=== PATIENT | female | born 1980 | race African-American/Black ===

== ENCOUNTER 2017-01-24 13:15 | Emergency (ER) | payer OTHER ==
--- NOTE | ~2017-01-24 | CR72 ---
[facility] A Service of [facility] RADIOLOGY TEXT RESULTS PATIENT: PEDRO GOODMAN LOCATION: [place] : [birth year] UNIT #: [id number] AGE: [address]: Chuy Hawkins MD SEX: F ORDER DR: [id number] [facility] [address] [place], [place] [address] [id number] MR#: [id number] Acc #: [id number] NAME: PEDRO GOODMAN : 1980 SEX: F STUDY DATE/TIME: 01/24/2017 UNIT: [place] ROOM: STUDY DESCRIPTION: CR Chest Single View Portable Attending Physician: Chuy Hawkins M.D. Ordering Physician: Chuy Hawkins M.D. [facility] RE[facility] This report is preliminary unless electronic signature is present EXAM Chest portable 01/24/2017 1340 hours HISTORY 36-year-old woman with cough, shortness of air, panic attacks for 4 days. History of breast carcinoma. COMPARISON None FINDINGS Portable upright chest demonstrates low lung volumes. The heart size, mediastinal and hilar contours appear normal. There is basilar vascular crowding, but no definite edema, pneumonia or effusion. No free air in the abdomen. IMPRESSION Film is limited by low lung volumes. There is perihilar and basilar vascular crowding, left greater than right. No definite acute cardiopulmonary findings. Dictated by... Yadira Schulz M.D. THIS IS AN ELECTRONICALLY VERIFIED REPORT Yadira Schulz M.D. at 01/27/2017 9:23 AM JAQUELIN/flo TD: 01/24/2017 16:07 JOB #: [id number] [facility] A Service [facility] RADIOLOGY TEXT RESULTS PATIENT: PEDRO GOODMAN LOCATION: [place] : [birth year] UNIT #: [id number] AGE: [address]: Chuy Hawkins MD SEX: F ORDER DR: MEDICAL IMAGING REPORT Page 1 of 1 COPY
--- NOTE | ~2017-01-24 | EKG ---
PATIENT: PEDRO GOODMAN UNIT #: [id number] Ventricular Rate: 109 BPM Atrial Rate: 109 BPM P-R Interval: 166 ms QRS Duration: 80 ms Q-T Interval: 330 ms QTC Calculation(Bezet): 444 ms P [place]: 44 degrees Calculated R [place]: 50 degrees Calculated T [place]: 44 degrees Diagnosis Line: Sinus tachycardia Diagnosis Line: Nonspecific T wave abnormality Diagnosis Line: Abnormal ECG Diagnosis Line: No previous ECGs available Diagnosis Line: Confirmed by TAHIR RICHARDSON MD ([id number]) on Diagnosis Line: 01/25/2017 4:27:57 PM INTERPRETING MD: DEBRA DRISCOLL
[~2017-01-24 13:15] MED LIST: BACTRIM DS TABL1 TA1 PO; FLAGYL250 M1 PO; LORTAB 5/500 TA1 TA1 PO; NAPROSYN500 MG PO; PEN-VEE K PO; PYRIDIUM100 MG PO; VIBRAMYCIN100 M1 PO; VICODIN 5/1 TAB 5/50; ZIPRASIDONE HCL20 M1 PO
[2017-01-24 14:38] LABS: BASOPHIL% 0.3 % (0-2.5); EOSINOPHIL# 0.4 X10e3 (0-0.7); EOSINOPHIL% 3.1 % (0.0-7.0); HEMOGLOBIN 13.1 gm/dL (12.0-16.0); LYMPHOCYTE# 1.9 X10e3 (1.0-3.5); LYMPHOCYTE% 13.3 % (17.0-45.0); MEAN CELL VOLUME 92.2 FL (83-96); MEAN CORPUSCULAR HGB CONC 33.6 g/dL (30-36); MEAN PLATELET VOLUME 9.5 FL (6.5-11.5); MONOCYTE# 0.8 X10e3 (0-1.0); MONOCYTE% 5.5 % (3.0-12.0); NEUTROPHIL# 11.1 X10e3 (1.5-7.1); NEUTROPHIL% 77.8 % (40-75); PLATELET COUNT 246 X10e3 (140-420); RED BLOOD COUNT 4.23 X10e (3.90-5.30); RED CELL DISTRIBUTION WIDTH 12.9 % (11.0-15.5); WHITE BLOOD COUNT 14.3 X10e3 (4.0-10.5)
[2017-01-24 14:39] LABS: DIFF IND NO
[2017-01-24 14:54] LABS: POC - CKMB <1.0 ng/mL (0.0-7.9); POC - TROPONIN <0.05 ng/mL (<=0.05)
[2017-01-24 15:08] LABS: ALBUMIN SERUM 4.5 g/dL (3.5-5.0); ALKALINE PHOSPHATASE 63 U/L (32-92); ALT (SGPT) 25 U/L (10-40); AST (SGOT) 24 U/L (10-42); BILIRUBIN,TOTAL 0.5 mg/dL (0.2-2.0); BLOOD UREA NITROGEN 7 mg/dL (9-23); BUN/CREATININE RATIO 11.66; CALCIUM SERUM 9.6 mg/dL (8.4-10.2); CARBON DIOXIDE 24 mmol/L (22-31); CHLORIDE 101 mmol/L (100-111); CREATININE SERUM 0.6 mg/dL (0.6-1.4); GLOM FILT RATE Estimated 136.9 mL/min (>60); GLUCOSE FASTING 107 mg/dL (70-110); POTASSIUM 3.5 mmol/L (3.5-5.1); PROTEIN TOTAL SERUM 7.7 g/dL (6.0-8.3); SODIUM 134 mmol/L (135-145)
[2017-01-24 15:09] LABS: BILIRUBIN, DIRECT <0.1 mg/dL (0.0-0.2); BILIRUBIN,INDIRECT 0.4 mg/dL (0.0-0.9)
== END 2017-01-24 16:10 | disposition home or self-care (01) ==
LOC: CED 13:15
PROVIDERS: Emergency Medicine
DX: J98.01 Acute bronchospasm (principal); D57.3 Sickle-cell trait; J45.909 Unspecified asthma, uncomplicated; Z88.5 Allergy status to narcotic agent; Z79.899 Other long term (current) drug therapy
CPT/HCPCS: 36415; 71010; 80048; 80076; 82553; 84484; 85025; 93005; 94640; 96374; 99284; J1885; J2930